=== PATIENT | female | born 1985 | race Caucasian/White ===

== ENCOUNTER 2019-10-13 07:15 | Inpatient (IN) | payer OTHER ==
[2019-10-13] MEDS ORDERED: PROMETHAZINE HCL 25 MG/1 ML VIAL IVPUSH ONE (08:05)
--- NOTE | 2019-10-13 08:05 | HP ---
Past Medical History - Primary Care Physician PCP:: Luz Orona - Admission Chief Complaint: postdates. cervidil History of Present Illness: 34 yo EDC 10/06/2019 ega 40.5 admitted for induction History Source: Patient Limitations to Obtaining History: No Limitations - Past Medical History ...: 2 ...Para: 0 ...Induced : 1 - Past Surgical History Past Surgical History: Yes: None Hx Myomectomy: No Hx Transabdominal Cerclage: No - Smoking History Smoking history: Current every day smoker Aproximately how many cigarettes per day: 5 - Alcohol/Substance Use Hx Alcohol Use: Yes (OCCAS.) History of Substance Use: reports: None Home Medications - Allergies Allergies/Adverse Reactions: Allergies Allergy/AdvReac Type Severity Reaction Status Date / Time neomycin [Neomycin] Allergy Verified 01/06/13 22:10 Penicillins Allergy Verified 01/06/13 22:10 - Home Medications Home Medications: Ambulatory Orders Cetirizine HCl [Zyrtec -] 10 mg PO DAILY 10/13/19 Pnv No.95/Ferrous Fum/Folic AC [ Formula] 1 each PO DAILY 10/13/19 Review of Systems - Review of Systems Constitutional: reports: No Symptoms Eyes: reports: No Symptoms HENT: reports: No Symptoms Neck: reports: No Symptoms Cardiovascular: reports: No Symptoms Respiratory: reports: No Symptoms Gastrointestinal: reports: No Symptoms Genitourinary: reports: No Symptoms Breasts: reports: No Symptoms Reported Musculoskeletal: reports: No Symptoms Integumentary: reports: No Symptoms Neurological: reports: No Symptoms Endocrine: reports: No Symptoms Hematology/Lymphatic: reports: No Symptoms Psychiatric: reports: No Symptoms Physical Exam - Maternity - Abdominal Exam/OB Number of Fetuses: Single Presentation: Vertex Category: I - Vaginal Exam/OB Dilatation (cm): closed Effacement (%): 50 Amniotic Membrane Status: Intact Presentation: Vertex/Position Station: -1 - Physical Exam Musculoskeletal: Yes: WNL Extremities: Yes: WNL Problem List - Problems (1) Post-dates Problems reviewed: Yes Code(s): O48.0 - POST-TERM Qualifiers: Post-term type: 40-42 weeks gestation Qualified Code(s): O48.0 - Post-term Assessment/Plan iup at 40.5 week postdates cat 1 GBS unknown PCN allergy plan cervidil
[2019-10-13] MEDS ORDERED: DINOPROSTONE 10 MG VAGINAL SUPPOSITORY VG ONE (08:07)
[2019-10-13 08:28] VITALS: BMI 37.8
[2019-10-13 10:23] LABS: BASO % 0.3 % (0-2.0); EOS % 1.1 % (0-4.5); HEMATOCRIT 31.3 % (32.4-45.2); HEMOGLOBIN 10.7 GM/dL (10.7-15.3); LYMPH % 16.2 % (8-40); MCH 29.9 pg (25.7-33.7); MCHC 34.1 g/dl (32.0-36.0); MEAN CELL VOLUME 87.7 fl (80-96); NEUT % 74.4 % (42.8-82.8); PLATELET COUNT 344 K/MM3 (134-434); RBC 3.57 M/mm3 (3.60-5.2); WHITE BLOOD COUNT 9.7 K/mm3 (4.0-10.0)
[2019-10-13 10:37] LABS: INR 0.92 (0.83-1.09); PROTHROMBIN TIME (PATIENT) 10.8 SEC (9.7-13.0)
[2019-10-13 10:40] LABS: ACTIVATED PTT 26.6 SECONDS (25.2-36.5)
[2019-10-13 10:53] LABS: BLOOD UREA NITROGEN 11.2 mg/dL (7-18); CREATININE 0.6 mg/dL (0.55-1.3); POTASSIUM 4.5 mmol/L (3.5-5.1)
[2019-10-13] MEDS ORDERED: CLINDAMYCIN 900 MG PREMIX IVPB 900 MG/50 ML BAG IVPB ONE (10:54)
[2019-10-13] MEDS: BUTORPHANOL TARTRATE 1 MG/ML VIAL IVPB SCH ×2 (15:05→19:07)
--- NOTE | 2019-10-13 19:33 | PN ---
Ante-Partal Exam - Subjective Subjective: pt doing well Vital Signs: Vital Signs Temperature 98.6 F 10/13/19 19:00 Pulse Rate 84 10/13/19 19:00 Respiratory Rate 18 10/13/19 19:00 Blood Pressure 113/66 10/13/19 19:00 O2 Sat by Pulse Oximetry (%) Bleeding: No Headache: No Visual changes: No Right upper quadrant pain: No - Contractions Contractions: Yes Regularity: Irregular Intensity: Mild Monitor Mode: External - Exam during Labor Heart Rate: 120 Variability: Moderate Heart Rate Location: [facility] Category: I Monitor Accelerations: Present Exam: Vaginal Dilatation (cm): 1 cm Effacement (%): 60 Amniotic Membrane Status: Intact Presentation: Vertex Station: -1 - Intrapartum Hemorrhage Risk Risk Score: 0 Risk Level: Low Risk - Assessment/Plan Assessment/Plan: Cat 1 40.5 week sp/ cervidil Plan pitocin aug
[2019-10-13] MEDS: ELECTROLYTE-148 SOLN 1,000 ML IV SCH (20:15)
[2019-10-13] MEDS ORDERED: OXYTOCIN 30 UNITS in 0.9% NS 30 UNIT/500 ML INFUS.BAG IVPB ONE (20:32)
[2019-10-13] MEDS: OXYTOCIN 30 UNITS in 0.9% NS 30 UNIT/500 ML INFUS.BAG IVPB SCH (20:40)
--- NOTE | 2019-10-13 22:06 | PN ---
Ante-Partal Exam - Subjective Subjective: Pt up to 4 mu and comfortable Vital Signs: Vital Signs Temperature 98.6 F 10/13/19 19:00 Pulse Rate 84 10/13/19 19:00 Respiratory Rate 18 10/13/19 19:00 Blood Pressure 113/66 10/13/19 19:00 O2 Sat by Pulse Oximetry (%) Bleeding: No Headache: No Visual changes: No Right upper quadrant pain: No - Contractions Contractions: Yes Regularity: Irregular Intensity: Mild Monitor Mode: External - Exam during Labor Heart Rate: 120 Variability: Moderate Heart Rate Location: [facility] Category: I Monitor Accelerations: Present Monitor Decelerations: None Amniotic Membrane Status: Intact - Intrapartum Hemorrhage Risk Risk Score: 0 Risk Level: Low Risk - Assessment/Plan Assessment/Plan: Prodromal labor cat 1 obesity Post dates 40.5 week Plan continue pitocin augmentation
[2019-10-14] MEDS ORDERED: CLINDAMYCIN 900 MG PREMIX IVPB 900 MG/50 ML BAG IVPB ONE (00:56)
[2019-10-14] MEDS: ELECTROLYTE-148 SOLN 1,000 ML IV SCH ×2 (05:00→14:49)
[2019-10-14] MEDS ORDERED: CLINDAMYCIN PHOSPHATE 600 MG/4 ML VIAL ONE (06:38)
[2019-10-14] MEDS: CLINDAMYCIN 600MG PREMIX IVPB 600 MG/50 ML BAG IVPB SCH ×3 (06:54→13:00)
[2019-10-14] MEDS ORDERED: FENTANYL/BUPIVACAINE/NS/PF - PCEA - 50 ML DISP.SYRIN EP ONE ×2 (08:21→14:22)
--- NOTE | 2019-10-14 08:26 | PN ---
Ante-Partal Exam - Subjective Subjective: Pt doing well comfortable Vital Signs: Vital Signs Temperature 98.5 F 10/14/19 06:00 Pulse Rate 75 10/14/19 07:00 Respiratory Rate 20 10/14/19 07:00 Blood Pressure 119/66 10/14/19 07:00 O2 Sat by Pulse Oximetry (%) Bleeding: No Headache: No Visual changes: No Right upper quadrant pain: No - Contractions Contractions: Yes Regularity: Regular Intensity: Mild Monitor Mode: External - Exam during Labor Variability: Moderate Heart Rate Location: [facility] Category: I Monitor Accelerations: Present Monitor Decelerations: None Exam: Vaginal Dilatation (cm): 2-3 cm Effacement (%): 80 Amniotic Membrane Status: Ruptured Amniotic Fluid: Clear Presentation: Vertex Station: -1 - Intrapartum Hemorrhage Risk Risk Score: 0 Risk Level: Low Risk - Assessment/Plan Assessment/Plan: Active labor IUP at 40.6 week Cat 1 srom obesity plan continue pitocin augmentation
[2019-10-14] MEDS ORDERED: NALOXONE HCL 0.4 MG/ML VIAL IVPUSH PRN (11:22)
[2019-10-14] MEDS ORDERED: CLINDAMYCIN 600MG PREMIX IVPB 600 MG/50 ML BAG IVPB SCH (11:30)
[2019-10-14] MEDS ORDERED: FENTANYL/BUPIVACAINE/NS/PF - PCEA - 50 ML DISP.SYRIN EP SCH (11:30)
[2019-10-14] MEDS ORDERED: PCA PUMP NR ONE ×2 (14:22→18:31)
[2019-10-14] MEDS ORDERED: OXYTOCIN 20 UNITS in 0.9% NS 20 UNIT/1,000 ML INFUS.BAG IV ONE (17:17)
[2019-10-14 19:01] LABS: CORD BASE EXCESS -7.8 mmol/L (0-2); CORD BASE EXCESS -8.4 mmol/L (0-2); CORD HCO3 18.5 mmHg (20-29); CORD HCO3 20.2 mmHg (20-29); CORD PCO2 40.6 mmHg (30-78); CORD PCO2 54.3 mmHg (30-78); CORD pH 7.189 (7.14-7.44); CORD pH 7.277 (7.14-7.44)
--- NOTE | 2019-10-14 20:54 | PN ---
Delivery - Delivery Vaginal Delivery: No Problems Type of Anesthesia: Epidural Episiotomy/Laceration: Perineal Extension/lac, 1st degree EBL (cc): 400 Delivery, Single - Stages of Labor Date 1st Stage Initiatied: 10/14/19 Time 1st Stage Initiated: 04:00 Date 2nd Stage Initiated: 10/14/19 Time 2nd Stage Initiated: 16:50 Date of Delivery: 10/14/19 Time of Delivery: 17:50 Time Placenta Delivered: 17:55 Placenta: Yes: Spontaneous - Condition of Eyewear Consultant/Cuff Folder Present: No Gender: Female Weight: 7 lb 3 oz Position: Left, OA Total Hours ROM (Hrs/Mins): 9H55M - 1 Minute Total Score: 9 5 Minutes Total Score: 9 - [place] Feeding Plan Initial Plan: Exclusive throughout hospitalization
[2019-10-14] MEDS ORDERED: BISACODYL 10 MG SUPP.RECT PR PRN (20:56)
[2019-10-14] MEDS ORDERED: WITCH HAZEL 50% (TUCKS) 40 PAD/JAR PAD TP PRN (20:56)
[2019-10-14] MEDS ORDERED: BENZOCAINE 20% 57 GM BOTTLE TP PRN (20:56)
[2019-10-14] MEDS ORDERED: METHYLERGONOVINE MALEATE 0.2 MG/1 ML AMP IM PRN (20:56)
[2019-10-14] MEDS ORDERED: BENZOCAINE 28 GM HEMORRHOIDAL OINTMENT PR PRN (20:56)
[2019-10-14] MEDS ORDERED: OXYTOCIN 20 UNITS in 0.9% NS 20 UNIT/1,000 ML INFUS.BAG IV SCH (21:15)
[2019-10-15] MEDS: ACETAMINOPHEN 325 MG TABLET (FP) PO PRN ×2 (05:53→11:51)
[2019-10-15] MEDS: IBUPROFEN 600 MG TABLET (FP) PO PRN ×2 (05:54→11:51)
--- NOTE | 2019-10-15 06:44 | PN ---
Post Progress Note - Subjective Subjective: 34 yo Para 1 status post vaginal delivery, seen and evaluated. Doing well. Post Day: 1 Type of Delivery: Vital Signs: Vital Signs Temperature 97.8 F 10/15/19 06:00 Pulse Rate 75 10/15/19 06:00 Respiratory Rate 18 10/15/19 06:00 Blood Pressure 101/64 10/15/19 06:00 O2 Sat by Pulse Oximetry (%) 98 10/14/19 22:00 Breast Exam: Yes: Soft Uterus: Yes: Fundus Firm Abdomen/GI: Yes: Abdomen soft, Tolerating PO Lochia: Yes: Rubra Lochia, amount: Moderate Extremities: Yes: Calves non-tender Perineum: Yes: Laceration (Healing) Activity: Ambulating - Labs Labs: CBC WBC 9.7 K/mm3 (4.0-10.0) 10/13/19 09:35 RBC 3.57 M/mm3 (3.60-5.2) L 10/13/19 09:35 Hgb 10.7 GM/dL (10.7-15.3) 10/13/19 09:35 Hct 31.3 % (32.4-45.2) L 10/13/19 09:35 MCV 87.7 fl (80-96) 10/13/19 09:35 MCH 29.9 pg (25.7-33.7) 10/13/19 09:35 MCHC 34.1 g/dl (32.0-36.0) 10/13/19 09:35 RDW 13.0 % (11.6-15.6) 10/13/19 09:35 Plt Count 344 K/MM3 (134-434) 10/13/19 09:35 MPV 8.0 fl (7.5-11.1) 10/13/19 09:35 Absolute Neuts (auto) 7.2 K/mm3 (1.5-8.0) 10/13/19 09:35 Neutrophils % 74.4 % (42.8-82.8) 10/13/19 09:35 Lymphocytes % 16.2 % (8-40) 10/13/19 09:35 Monocytes % 8.0 % (3.8-10.2) 10/13/19 09:35 Eosinophils % 1.1 % (0-4.5) 10/13/19 09:35 Basophils % 0.3 % (0-2.0) 10/13/19 09:35 Nucleated RBC % 0 % (0-0) 10/13/19 09:35 Problem List - Problems (1) Status post normal vaginal delivery Problems reviewed: Yes Code(s): VES8646 - Assessment/Plan Status post vaginal delivery Stable Continue routine care
[2019-10-15] MEDS ORDERED: DIPHTH,PERTUSS(ACELL),TET 0.5 ML DISP.SYRIN IM ONE (10:00)
[2019-10-15 10:52] LABS: BASO % 0.3 % (0-2.0); EOS % 0.4 % (0-4.5); HEMOGLOBIN 9.4 GM/dL (10.7-15.3); LYMPH % 12.4 % (8-40); MCH 30.1 pg (25.7-33.7); MCHC 33.7 g/dl (32.0-36.0); MEAN CELL VOLUME 89.4 fl (80-96); MEAN PLT VOLUME 8.2 fl (7.5-11.1); MONO % 7.3 % (3.8-10.2); NEUT % 79.6 % (42.8-82.8); PLATELET COUNT 271 K/MM3 (134-434); RBC 3.13 M/mm3 (3.60-5.2); RDW 13.3 % (11.6-15.6); WHITE BLOOD COUNT 13.1 K/mm3 (4.0-10.0)
[2019-10-15 15:40] VITALS: TEMP 97.7
[2019-10-15] MEDS: BUTORPHANOL TARTRATE 1 MG/ML VIAL IVPB SCH ×3 (20:03→20:05)
[2019-10-15] MEDS: ELECTROLYTE-148 SOLN 1,000 ML IV SCH (20:04)
[2019-10-15] MEDS: CLINDAMYCIN 600MG PREMIX IVPB 600 MG/50 ML BAG IVPB SCH ×3 (20:04→20:13)
[2019-10-15] MEDS: OXYTOCIN 30 UNITS in 0.9% NS 30 UNIT/500 ML INFUS.BAG IVPB SCH (20:05)
[2019-10-16] MEDS: IBUPROFEN 600 MG TABLET (FP) PO PRN (01:42)
[2019-10-16] MEDS: ACETAMINOPHEN 325 MG TABLET (FP) PO PRN (01:43)
--- NOTE | 2019-10-16 03:14 | DS ---
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 Vital Signs: Vital Signs Temperature 97.7 F 10/15/19 20:55 Pulse Rate 87 10/15/19 20:55 Respiratory Rate 18 10/15/19 20:55 Blood Pressure 110/74 10/15/19 20:55 O2 Sat by Pulse Oximetry (%) 97 10/15/19 20:55 Constitutional: Yes: Well Nourished, No Distress Gastrointestinal: Yes: WNL, Soft ....Post : Yes: Uterus firm, Uterus non-tender Breast(s): Yes: WNL Musculoskeletal: Yes: WNL Extremities: Yes: WNL Edema: No Labs: CBC, BMP 10/15/19 09:56 10/13/19 09:35 Delivery - Delivery Vaginal Delivery: No Problems Type of Anesthesia: Epidural Episiotomy/Laceration: Perineal Extension/lac, 1st degree EBL (cc): 400 Delivery, Single - Stages of Labor Date 1st Stage Initiatied: 10/14/19 Time 1st Stage Initiated: 04:00 Date 2nd Stage Initiated: 10/14/19 Time 2nd Stage Initiated: 16:50 Date of Delivery: 10/14/19 Time of Delivery: 17:50 Time Placenta Delivered: 17:55 Placenta: Yes: Spontaneous - Condition of Infant 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/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 Personnel 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 Present: No Infant Gender: Female Weight: 7 lb 3 oz Position: Left, OA Total Hours ROM (Hrs/Mins): 9H55M - 1 Minute Total Score: 9 5 Minutes Total Score: 9 - [place] Feeding Plan Initial Plan: Exclusive throughout hospitalization Discharge Summary Problems reviewed: Yes Reason For Visit: INDUCTION Current Active Problems Post-dates (Acute) Status post normal vaginal delivery (Acute) Procedures: Principal: Normal vaginal delivery Hospital Course: unremarkable Condition: Good - Instructions Diet, Activity, Other Instructions: Physical activity Resume your normal everyday activity as tolerated no heavy lifting or exercise until seen by your surgeon. You may walk unlimited ronald of and climb stairs. You may resume driving the car when you feel safe and comfortable behind the wheel. No sexual activity as instructed. Wound care If you have a bandage, leave it on, and keep dry for 48-72 hours. After that time discard the outer bandage. If they are tapes on the skin under the out of bandage leave them in place. They will peel off in the next 7 to 10 days. Do Not Peel them off. You may shower the day after surgery. If there are tapes present on the skin, you may shower over them. Diet There are no dietary restrictions. Eat healthy, high-fiber foods. Drink 6 to 8 glasses of liquid each day. This will assist in keeping your bowels are regular. Pain management You may take Tylenol or acetaminophen or Ibuprofen (for example, Motrin, Advil etc.) from my pain prescription medication is ordered should be taken as prescribed for moderate to severe pain. Call MD for any of the following: Severe pain not relieved by medication Fever of 101 or higher Excessive bleeding or drainage on dressing Inability to urinate Referrals: Luz Orona MD [Staff Physician] - Disposition: HOME - Home Medications Comprehensive Discharge Medication List: Ambulatory Orders Cetirizine HCl [Zyrtec -] 10 mg PO DAILY 10/13/19 Pnv No.95/Ferrous Fum/Folic AC [ Formula] 1 each PO DAILY 10/13/19 Ibuprofen [Motrin -] 600 mg PO QID #28 tablet 10/15/19
[2019-10-16 09:53] VITALS: BP 114/80; PULSE 69
== END 2019-10-16 11:45 | disposition home or self-care (01) | DRG 807 ==
LOC: JLDR 07:15 → J3W 10-14 20:30
PROVIDERS: ADMIT Obstetrics & Gynecology; ATTEND Obstetrics & Gynecology
PROC: 10E0XZZ Delivery of Products of Conception, External Approach (ICD-10-PCS; principal; 2019-10-14)
PROC: 0HQ9XZZ Repair Perineum Skin, External Approach (ICD-10-PCS; 2019-10-14)
DX: O48.0 Post-term pregnancy (principal); Z37.0 Single live birth; Z3A.40 40 weeks gestation of pregnancy; O70.0 First degree perineal laceration during delivery; O99.214 Obesity complicating childbirth; E66.9 Obesity, unspecified; Z88.0 Allergy status to penicillin
CPT/HCPCS: 36415; 36600; 59409; 80048; 82803; 85025; 85610; 85730; 86780; 86850; 86900; 86901; 87389; 90715

== ENCOUNTER 2020-03-21 13:57 | Emergency (ER) | payer OTHER | END 2020-03-21 14:49 | disposition home or self-care (01) | LOC: JVIRT 13:57 | DX: Z20.822 Contact with and (suspected) exposure to COVID-19 (principal) | CPT/HCPCS: C9803; G2251-GT; Q3014-GT; U0003 ==